=== PATIENT | male | born 1985 | race Caucasian/White ===

== ENCOUNTER 2018-11-04 22:22 | Emergency (ER) | payer OTHER ==
[2018-11-04 22:28] VITALS: BP 122/81; PULSE 71; TEMP 97.9; BMI 29.0
--- NOTE | 2018-11-04 22:30 | PDOC ---
History of Present Illness - General History Source: Patient Exam Limitations: No Limitations - History of Present Illness Initial Comments: 11/04/18 22:34 A portion of this note was documented by scribe services under my direction. I have reviewed the details of the note, within reason, and agree with the documentation with the following case summary and management plan written by me. Patient treated in the ED. Nursing notes are reviewed and incorporated into the medical decision-making. Vital signs reviewed. Assessment plan: This is a 33-year-old male who tripped and fell while running. Patient has some pain of his anterior rotator cuff and right leg. However there is no bony tenderness and it appears to be muscular. Patient given Toradol here in the emergency room and discharged home told to follow-up with his primary care doctor <Julius Foley I - Last Filed: 11/04/18 22:34> - General History Source: Patient Exam Limitations: No Limitations - History of Present Illness Initial Comments: 11/04/18 22:47 The patient is a 33 year old male with no significant PMH who presents to the emergency department with pain s/p fall earlier today. The patient reports that he went out jogging at around 6 pm this evening when he fell, landing on his left shoulder. He reports some associated pain with movement of his left shoulder at a 4/10 in severity. He reports some associate right leg and knee pain with his fall as well with a severity of 7/10. The patient denies any head injury, loc, headache, dizziness, weakness, numbness or tingling sensation. The patient denies any other symptoms or complaints. It is noted that the patient took an advil prior to his run. PAST MEDICAL HISTORY: no significant history PAST SURGICAL HISTORY: no significant history FAMILY HISTORY: no pertinent history SOCIAL HISTORY: Pt lives with family and is employed. MEDICATIONS: reviewed ALLERGIES: As per nursing notes General: No fevers or chills, no weakness, no weight loss HEENT: No change in vision. No sore throat,. No ear pain CardioVascular: No chest pain or shortness of breath Respiratory:No cough, or wheezing. Gastrointestinal: no nausea, vomiting, diarrhea or constipation, No rectal bleeding Genitourinary: No dysuria, hematuria, or frequency Musculoskeletal: (+)left shoulder pain, right hip and knee pain. No joint or muscle swelling Neurologic: No headache, vertigo, dizziness or loss of consciousness Psychiatric: nor depression Skin: No rashes or easy bruising Endocrine: no increased thirst or abnormal weight change Allergic: no skin or latex allergy All other systems reviewed and normal GENERAL: The patient is awake, alert, and fully oriented, in no acute distress. HEAD: Normal with no signs of trauma. EYES: Pupils equal, round and reactive to light, extraocular movements intact, sclera anicteric, conjunctiva clear. EXTREMITIES:(+)decreased ROM to left shoulder, discomfort in rotator cuff. Right hip and leg has soft tissue tenderness and decreased ROM and antalgic gait. No bony tenderness. no edema. NEUROLOGICAL: Normal speech. PSYCH: Normal mood, normal affect. SKIN: Warm, Dry, normal turgor, no rashes or lesions noted. <Jennifer Barrientos - Last Filed: 11/04/18 22:47> - General Chief Complaint: Pain Stated Complaint: PAIN Time Seen by Provider: 11/04/18 22:30 Past History - Past Medical History COPD: No Other medical history: Pt denies - Suicide/Smoking/Psychosocial Hx Smoking History: Never smoked Have you smoked in the past 12 months: No Information on smoking cessation initiated: No Hx Alcohol Use: No Drug/Substance Use Hx: No <Julius Foley I - Last Filed: 11/04/18 22:34> <Jnenifer Barrientos - Last Filed: 11/04/18 22:47> - Past Medical History Allergies/Adverse Reactions: Allergies Allergy/AdvReac Type Severity Reaction Status Date / Time No Known Allergies Allergy Verified 11/04/18 22:24 Home Medications: Ambulatory Orders NK [No Known Home Medication] 11/04/18 *Physical Exam - Vital Signs Last Vital Signs Temp Pulse Resp BP Pulse Ox 97.9 F 71 18 122/81 99 11/04/18 22:25 11/04/18 22:25 11/04/18 22:25 11/04/18 22:25 11/04/18 22:25 <Julius Foley I - Last Filed: 11/04/18 22:34> - Vital Signs Last Vital Signs Temp Pulse Resp BP Pulse Ox 97.9 F 71 18 122/81 99 11/04/18 22:25 11/04/18 22:25 11/04/18 22:25 11/04/18 22:25 11/04/18 22:25 <Jennifer Barrientos - Last Filed: 11/04/18 22:47> Moderate Sedation - Procedure Monitoring Vital Signs: Procedure Monitoring Vital Signs Temperature 97.9 F 11/04/18 22:25 Pulse Rate 71 11/04/18 22:25 Respiratory Rate 18 11/04/18 22:25 Blood Pressure 122/81 11/04/18 22:25 O2 Sat by Pulse Oximetry (%) 99 11/04/18 22:25 <Julius Foley I - Last Filed: 11/04/18 22:34> - Procedure Monitoring Vital Signs: Procedure Monitoring Vital Signs Temperature 97.9 F 11/04/18 22:25 Pulse Rate 71 11/04/18 22:25 Respiratory Rate 18 11/04/18 22:25 Blood Pressure 122/81 11/04/18 22:25 O2 Sat by Pulse Oximetry (%) 99 11/04/18 22:25 <Jennifer Barrientos - Last Filed: 11/04/18 22:47> ED Treatment Course - Medications Given in the ED: ED Medications Discontinued Medications Generic Name Dose Route Start Last Admin Trade Name Ojq PRN Reason Stop Dose Admin Ketorolac Tromethamine 60 mg 11/04/18 22:33 11/04/18 22:41 Toradol Injection - IM 11/04/18 22:34 60 mg ONCE ONE Administration <Jennifer Barrientos - Last Filed: 11/04/18 22:47> *DC/Admit/Observation/Transfer - Discharge Dispostion Decision to Admit order: No <Julius Foley I - Last Filed: 11/04/18 22:34> - Attestations Scribe Attestion: 11/04/18 22:47 Documentation prepared by Jennifer Barrientos, acting as ophthalmic medical technician for Julius Foley MD. <Jennifer Barrientos - Last Filed: 11/04/18 22:47> Diagnosis at time of Disposition: Fall, Left shoulder pain, Right leg pain - Discharge Dispostion Disposition: HOME - Patient Instructions Additional Instructions: For the pain take ibuprofen 3 tablets 3 times a day with food don't take on an empty stomach take this for at least 4-5 days. It is normal to feel worse the second or third day after a fall so do not be concerned if things get worse before they get better. Return to the emergency department immediately with ANY new, persistent or worsening symptoms. Continue any medications as previously prescribed by your physician. You should follow up with your primary doctor as soon as possible regarding today's emergency department visit. . Please make sure your doctor reviews the results of your emergency evaluation. Thank you for coming to the Emergency Department today for your care. It was a pleasure to see you today. Please note that your evaluation is INCOMPLETE until you follow-up with your doctor.
[2018-11-04] MEDS ORDERED: KETOROLAC TROMETHAMINE 60 MG/2 ML VIAL IM ONE (22:33)
[2018-11-04] MEDS ORDERED: KETOROLAC TROMETHAMINE 60 MG/2 ML VIAL ONE (22:34)
== END 2018-11-04 22:49 | disposition home or self-care (01) ==
LOC: FER 22:22
PROC: 3E0233Z Introduction of Anti-inflammatory into Muscle, Percutaneous Approach (ICD-10-PCS; principal; 2018-11-04)
DX: M25.512 Pain in left shoulder (principal); M79.605 Pain in left leg; W18.39XA Other fall on same level, initial encounter; Y93.02 Activity, running; Y92.89 Other specified places as the place of occurrence of the external cause
CPT/HCPCS: 99282-25